=== PATIENT | female | born 1975 | race Caucasian/White ===

== ENCOUNTER 2020-07-29 09:48 | Inpatient (IN) ==
[2020-07-26 11:20] LABS: Eosinophils % 0.2 % (0.00-10.9); Hematocrit 33.5 VOL% (35.7-47.0); Hemoglobin 10.2 GM/DL (12.0-16.0); Immature Granulocytes % 0.6 %; Immature Granulocytes Absolute 0.04 #; Lymphocytes # 1.9 10*3/uL (1.4-4.0); Lymphocytes % 29.7 % (21.3-54.2); Mean Corpuscular HGB Conc 30.4 GM/DL (32-36); Mean Corpuscular Volume 76.3 FL (87-102); Mean Platelet Volume 9.9 FL (9.6-12.0); Monocytes % 6.6 % (1.7-12.7); Neutrophils % 62.9 % (38.7-73.9); Platelet Count 447 T/CUMM (130-400); Red Blood Count 4.39 MC/CUMM (3.8-5.5); Red Cell Distribution Width 15.1 % (9.3-17.3); White Blood Count 6.2 T/CUMM (4-12)
[2020-07-26 11:28] LABS: Bacteria,Urine Occasional /HPF (Few); Bilirubin,Urine Negative (Negative); Blood, Urine Large mg/dL (Negative); Glucose,Urine (UA) Negative (Negative); Ketones,Urine Negative (Negative); Mucus,Urine Few /LPF (Occasional); Nitrite,Urine Negative (Negative); Protein,Urine Negative; RBC,Urine 20 /HPF (0-4); Squamous Epithelial Cell,Urine Occasional /HPF (0-10); Urine Appearance Slightly Hazy (Clear); Urine Color Yellow (Yellow); Urine Specific Gravity 1.023 (1.001-1.035); Urine Urobilinogen < 2.0 EU/DL (0.2-1.0); WBC,Urine 10 /HPF (0-6)
[2020-07-26 11:32] LABS: Calcium 8.3 MG/DL (8.5-10.1)
[2020-07-26 11:33] LABS: Alanine Aminotransferase 12 U/L (13-56); Albumin 3.6 G/DL (3.4-5.0); Alkaline Phosphatase 64 U/L (45-117); Aspartate Amino Transferase 9 U/L (0-37); Bilirubin,Total < 0.39 MG/DL (0.2-1.0); Blood Urea Nitrogen 14 MG/DL (7-18); Estimated Glom Filtration Rate 103 ML/MIN; Glucose 85 MG/DL (74-106); HDL Cholesterol 42 MG/DL (40-60); Total Protein 6.9 G/DL (6.4-8.3); Triglycerides 189 MG/DL (2-150); VLDL CHOLESTEROL 37.8 MG/DL
[2020-07-26 12:21] LABS: HIV Antigen/Antibody Result Nonreactive (Nonreactive)
[~2020-07-29 09:48] MED LIST: AMPICILLIN/SULBACTAM 3,000 MG in SODIUM CHLORIDE 0.9% 100 ML IV ONE
[2020-07-29] MEDS ORDERED: FAMOTIDINE 20 MG TABLET PO ONE (10:28)
[2020-07-29] MEDS ORDERED: SCOPOLAMINE 1.5 MG PATCH TRANSDERM ONE (10:28)
[2020-07-29] MEDS ORDERED: DIAZEPAM 5 MG TABLET PO ONE (10:28)
[2020-07-29] MEDS ORDERED: LACTATED RINGERS 1,000 ML IV SCH ×3 (10:30→17:00)
[2020-07-29] MEDS ORDERED: MIDAZOLAM 2 MG/2 ML VIAL ONE (13:56)
[2020-07-29] MEDS ORDERED: ROCURONIUM 50 MG/5 ML VIAL IV ONE (13:57)
[2020-07-29] MEDS ORDERED: fentaNYL 100 MCG/2 ML VIAL ONE ×4 (13:57→16:31)
[2020-07-29] MEDS ORDERED: LIDOCAINE 2% 5 ML VIAL ONE (13:57)
[2020-07-29] MEDS ORDERED: propofoL 200 MG/20 ML VIAL IV ONE (13:57)
[2020-07-29] MEDS ORDERED: KETOROLAC 30 MG/1 ML VIAL ONE (14:31)
[2020-07-29] MEDS ORDERED: ACETAMINOPHEN 1,000 MG/100 ML VIAL IV ONE (14:31)
[2020-07-29] MEDS ORDERED: DEXAMETHASONE 4 MG/1 ML VIAL ONE (14:37)
[2020-07-29] MEDS ORDERED: SODIUM CHLORIDE 0.9% 1,000 ML IV PRN ×4 (15:43→18:09)
[2020-07-29] MEDS ORDERED: SODIUM CHLORIDE 0.9% 1,000 ML IV ONE (15:48)
[2020-07-29] MEDS ORDERED: PHENYLEPHRINE 1 MG/10 ML SYRINGE IV ONE ×2 (15:48→16:01)
[2020-07-29] MEDS ORDERED: LACTATED RINGERS 1,000 ML IV ONE (15:51)
[2020-07-29] MEDS ORDERED: FUROSEMIDE 20 MG/2 ML VIAL ONE (16:26)
[2020-07-29] MEDS ORDERED: BENZOCAINE/MENTHOL LOZENGE 18/BOX PO PRN ×2 (16:56→16:58)
[2020-07-29] MEDS ORDERED: ONDANSETRON 4 MG/2 ML VIAL IV PRN ×3 (16:56→17:10)
[2020-07-29] MEDS ORDERED: BISACODYL 10 MG SUPP RECTAL PRN ×2 (16:56→16:58)
[2020-07-29] MEDS ORDERED: DOCUSATE SODIUM 100 MG CAPSULE PO PRN (16:56)
[2020-07-29] MEDS ORDERED: MAGNESIUM HYDROXIDE SUSP 30 ML UDCUP PO PRN (16:56)
[2020-07-29] MEDS ORDERED: IBUPROFEN 800 MG TABLET PO PRN (16:56)
[2020-07-29] MEDS ORDERED: ACETAMINOPHEN 325 MG TABLET PO PRN ×2 (16:56→16:58)
[2020-07-29] MEDS ORDERED: HYDROmorphone 2 MG/1 ML VIAL IV PRN ×2 (17:14→19:28)
[2020-07-29 18:11] LABS: Bacteria,Urine Occasional /HPF (Few); Bilirubin,Urine Negative (Negative); Blood, Urine Moderate mg/dL (Negative); Glucose,Urine (UA) Negative (Negative); Ketones,Urine Negative (Negative); Mucus,Urine Occasional /LPF (Occasional); Nitrite,Urine Negative (Negative); Protein,Urine Negative; RBC,Urine 76 /HPF (0-4); Squamous Epithelial Cell,Urine Occasional /HPF (0-10); Urine Appearance CLEAR (Clear); Urine Color Yellow (Yellow); Urine Urobilinogen < 2.0 EU/DL (0.2-1.0)
[2020-07-29] MEDS ORDERED: METOCLOPRAMIDE 10 MG/2 ML VIAL ONE (18:24)
[2020-07-29] MEDS ORDERED: PROMETHAZINE 25 MG/1 ML VIAL ONE (18:24)
[2020-07-29] MEDS ORDERED: METOCLOPRAMIDE 10 MG/2 ML VIAL IV ONE (18:25)
[2020-07-29] MEDS ORDERED: PROMETHAZINE INJ 12.5 MG in SODIUM CHLORIDE 0.9% 50 ML IV ONE (18:25)
[2020-07-29 23:01] LABS: Basophils % 0.1 % (0.0-0.8); Hematocrit 33.5 VOL% (35.7-47.0); Immature Granulocytes % 0.6 %; Immature Granulocytes Absolute 0.11 #; Lymphocytes # 0.9 10*3/uL (1.4-4.0); Lymphocytes % 5.2 % (21.3-54.2); Mean Corpuscular HGB Conc 32.8 GM/DL (32-36); Mean Corpuscular Volume 77.9 FL (87-102); Mean Platelet Volume 9.5 FL (9.6-12.0); Monocytes % 4.3 % (1.7-12.7); Neutrophils % 89.8 % (38.7-73.9); Platelet Count 339 T/CUMM (130-400); Red Cell Distribution Width 15.6 % (9.3-17.3)
[2020-07-29] MEDS: ceFAZolin 1,000 MG in SYRINGE 1 EACH IV SCH (23:17)
[2020-07-30] MEDS: IBUPROFEN 800 MG TABLET PO PRN ×2 (04:30→19:32)
[2020-07-30 05:11] LABS: Hematocrit 26.4 VOL% (35.7-47.0); Hemoglobin 8.7 GM/DL (12.0-16.0); Immature Granulocytes % 0.5 %; Immature Granulocytes Absolute 0.05 #; Lymphocytes # 1.3 10*3/uL (1.4-4.0); Lymphocytes % 12.1 % (21.3-54.2); Mean Corpuscular Volume 77.9 FL (87-102); Mean Platelet Volume 9.8 FL (9.6-12.0); Monocytes % 7.8 % (1.7-12.7); Neutrophils % 79.6 % (38.7-73.9); Platelet Count 282 T/CUMM (130-400); Red Blood Count 3.39 MC/CUMM (3.8-5.5); Red Cell Distribution Width 15.4 % (9.3-17.3); White Blood Count 10.3 T/CUMM (4-12)
[2020-07-30] MEDS: ceFAZolin 1,000 MG in SYRINGE 1 EACH IV SCH (06:45)
[2020-07-30] MEDS: METOCLOPRAMIDE 10 MG TABLET PO SCH ×2 (08:12→14:56)
[2020-07-30] MEDS: MAGNESIUM HYDROXIDE SUSP 30 ML UDCUP PO PRN ×2 (09:11→19:32)
[2020-07-30] MEDS: DOCUSATE SODIUM 100 MG CAPSULE PO PRN ×2 (09:25→19:33)
[2020-07-30] MEDS: FERROUS SULFATE 325 MG TABLET PO SCH ×3 (09:25→21:26)
[2020-07-30] MEDS ORDERED: SIMETHICONE CHEW 80 MG TABLET PO PRN ×2 (14:40→21:29)
[2020-07-31] MEDS ORDERED: LEVOTHYROXINE 150 MCG TABLET PO SCH (06:30)
[2020-07-31] MEDS: FERROUS SULFATE 325 MG TABLET PO SCH (10:13)
[2020-07-31] MEDS: DOCUSATE SODIUM 100 MG CAPSULE PO PRN (10:13)
[2020-07-31] MEDS ORDERED: TAMOXIFEN 10 MG TABLET PO SCH (10:30)
[2020-07-31] MEDS ORDERED: CITALOPRAM 20 MG TABLET PO SCH (10:30)
[2020-07-31] MEDS ORDERED: VALSARTAN/HCTZ 160-12.5 MG TABLET PO SCH (10:30)
[2020-07-31] MEDS: IBUPROFEN 800 MG TABLET PO PRN (12:45)
[2020-07-31 12:55] VITALS: BP 134/86
== END 2020-07-31 14:30 | disposition home or self-care (01) | DRG 742 ==
LOC: N.OR 09:48 → N.SDSINP 09:48 → EDSDCBED 19:05 → N.OB 19:05 → N.LD 19:05 → N.OR 07-31 14:30 → N.OB 08-05 11:03
PROVIDERS: ADMIT Obstetrics & Gynecology; ATTEND Obstetrics & Gynecology